=== PATIENT | female | born 2000 | race Two or more races ===

== ENCOUNTER 2020-03-09 21:28 | Emergency (ER) | payer MEDICAID ==
[~2020-03-09] VITALS: Ht 177.8 cm; Wt 92.3 kg
--- NOTE | 2020-03-09 22:06 | NUR ---
Pt states inspiratory CP starting last night 04/06. States having low grade fevers.
--- NOTE | 2020-03-09 22:20 | NUR ---
assumed care of pt. report from Murray PAUL. pt here for SOB. resting in positition of comfort. no family at bedside. COVID swab has been collected and sent.
[2020-03-09] MEDS ORDERED: ALBUTEROL/IPRATROPIUM 2.5MG/0.5MG, 3 ML NPPB ONE (22:30)
[2020-03-09] MEDS ORDERED: SODIUM CHLORIDE 0.9% 1,000ML IVBOLUS ONE (22:30)
[2020-03-09] MEDS ORDERED: KETOROLAC 30 MG/1 ML IVPush ONE (22:30)
--- NOTE | 2020-03-09 22:31 | NUR ---
lab at bedside
--- NOTE | 2020-03-09 22:32 | NUR ---
Report provided to HUMBERTO Bey
[2020-03-09 22:53] LABS: BASOPHILS # (AUTO) 0.02 x10^3/uL (0-0.3); BASOPHILS % (AUTO) 0 % (0-1); EOSINOPHILS # (AUTO) 0.01 x10^3/uL (0-0.8); EOSINOPHILS % (AUTO) 0 % (1-7); LYMPHOCYTES # (AUTO) 1.49 x10^3/uL (1-6.1); LYMPHOCYTES % (AUTO) 29 % (22-44); MD NO; MEAN CORPUSCULAR HEMOGLOBIN 28.4 pg (27.0-34.8); MEAN CORPUSCULAR HGB CONC 33.6 g/dL (32.4-35.8); MEAN CORPUSCULAR VOLUME 84.6 fL (80-100); MEAN PLATELET VOLUME 8.7 fL (7.4-10.4); MONOCYTES # (AUTO) 0.39 x10^3/uL (0-1.4); MONOCYTES % (AUTO) 8 % (2-9); NEUTROPHILS # (AUTO) 3.18 x10^3/uL (1.8-8.0); NEUTROPHILS % (AUTO) 63 % (42-75); PLATELET COUNT 255 x10^3/uL (130-400); RED CELL DISTRIBUTION WIDTH 13.3 % (9.6-15.2)
[2020-03-09] MEDS ORDERED: KETOROLAC 30 MG/1 ML ONE (22:56)
[2020-03-09] MEDS ORDERED: ALBUTEROL/IPRATROPIUM 2.5MG/0.5MG, 3 ML ONE (22:56)
[2020-03-09 23:00] LABS: ALANINE AMINOTRANSFERASE 35 U/L (12-78); ALBUMIN 3.9 g/dL (3.4-5.0); ANION GAP 8 mmol/L (5-15); C-REACTIVE PROTEIN, QUANT 0.82 mg/dL (0.02-0.49); CALCIUM 8.4 mg/dL (8.5-10.1); CHLORIDE 109 mmol/L (98-107); CREATININE 0.79 mg/dL (0.55-1.02)
[2020-03-09 23:05] LABS: ALKALINE PHOSPHATASE 152 U/L (45-117); BILIRUBIN,TOTAL 0.3 mg/dL (0.2-1.0); TOTAL PROTEIN 8.1 g/dL (6.4-8.2)
--- NOTE | 2020-03-09 23:19 | NUR ---
pt has been medicated per order. well tolerated. pt reports that she feel like she is brething better after breathing tx. no resp distress. pt reports that she has been exposed to someone in her home that has COVID within the last week. pt reports that the family member is at home, not hsopitalized. she reports that she is having pain in the enter of her chest with deep inspiration. she took ibuprofen ORTHOTIST without relief positioning for comfort. pt watching TV. updated on POC.
--- NOTE | 2020-03-09 23:34 | NUR ---
pt reports a decrease in pain fom 8/ to 410. resting in position of comfort watching TV.
[2020-03-09 23:36] VITALS: BP 118/69
== END 2020-03-10 01:06 | disposition home or self-care (01) ==
LOC: ED 21:48
DX: U07.1 COVID-19 (principal); B34.9 Viral infection, unspecified; R00.0 Tachycardia, unspecified; J45.909 Unspecified asthma, uncomplicated
CPT/HCPCS: 36415; 71045; 80053; 82728; 83605; 83615; 84145; 85025; 86140; 87635; 93005; 94640; 96374; 99285; J1885; J7030; 96372